=== PATIENT | female | born 1980 | race American Indian/Alaskan Native ===

== ENCOUNTER 2019-08-17 13:22 | Emergency (ER) | payer SELFPAY ==
[2019-08-17 13:26] VITALS: BP 141/80
--- NOTE | 2019-08-17 13:32 | Emergency Department Report ---
Blank Doc - Documentation Documentation: 39-year-old female that presents with urinary symptoms and pelvic pain. This initial assessment/diagnostic orders/clinical plan/treatment(s) is/are subject to change based on patient's health status, clinical progression and re- assessment by fellow clinical providers in the ED. Further treatment and workup at subsequent clinical providers discretion. Patient/guardians urged not to elope from the ED as their condition may be serious if not clinically assessed and managed. Initial orders include: 1- Patient sent to [facility] for further evaluation and treatment 2- UA
[2019-08-17 14:47] LABS: HCG Qualitative,Urine Negative (Negative)
[2019-08-17 14:50] LABS: Bilirubin,Urine NEG (Negative); Blood,Urine NEG (Negative); Color,Urine Colorless (Yellow); Protein,Urine <15 mg/dL mg/dL (Negative); Urobilinogen,Urine < 2.0 mg/dL (<2.0); WBC,Urine < 1.0 /HPF (0.0-6.0)
--- NOTE | 2019-08-17 18:18 | Emergency Department Report ---
HPI - General Chief Complaint: Abdominal Pain Time Seen by Provider: 08/17/19 13:31 - HPI HPI: 39-year-old -[place] female presents to the emergency department with a complaint of some lower abdominal and pelvic cramping pain and dysuria that has been going on for the past 1-2 months. The patient says that she saw a physician 3 weeks ago and was placed on Bactrim and the symptoms resolved but then they came back within the antibiotics finished. Patient says that she has increased urinary frequency. She denies any past history. She denies any fever, nausea or vomiting, vaginal discharge or vaginal bleeding. ED Past Medical Hx - Past Medical History Previous Medical History?: No - Surgical History Past Surgical History?: Yes Additional Surgical History: - Social History Smoking Status: Never Smoker Substance Use Type: None - Medications Home Medications: Home Medications Medication Instructions Recorded Confirmed Last Taken Type Phenazopyridine [Pyridium] 100 mg PO TID #6 tab 08/17/19 Unknown Rx ED Review of Systems ROS: Stated complaint: POSS UTI Other details as noted in HPI Comment: All other systems reviewed and negative Constitutional: denies: chills, fever Gastrointestinal: abdominal pain. denies: nausea, vomiting Genitourinary: dysuria, frequency. denies: discharge Musculoskeletal: denies: back pain Skin: denies: rash, lesions Physical Exam - Physical Exam Vital Signs: Vital Signs 08/17/19 13:25 Temperature 98.4 F Pulse Rate 87 Respiratory 16 Rate Blood Pressure 141/80 O2 Sat by Pulse 96 Oximetry Physical Exam: GENERAL: The patient is well-developed well-nourished. HEENT: Normocephalic. Atraumatic. Patient has moist mucous membranes. EYES: Extraocular motions are intact. NECK: Supple. Trachea is midline. CHEST/LUNGS: Clear to auscultation. There is no respiratory distress noted. HEART/CARDIOVASCULAR: Regular. There is no tachycardia. There is no murmur. ABDOMEN: Abdomen is soft. Unable to reproduce lower abdominal or pelvic pain to palpation. No guarding. Patient has normal bowel sounds. There is no abdominal distention. SKIN:Skin is warm and dry. . NEURO: The patient is awake, alert, and oriented. The patient is cooperative. The patient has no focal neurologic deficits. Normal speech. MUSCULOSKELETAL: There is no tenderness or deformity. There is no evidence of acute injury. ED Course Vital Signs 08/17/19 13:25 Temperature 98.4 F Pulse Rate 87 Respiratory 16 Rate Blood Pressure 141/80 O2 Sat by Pulse 96 Oximetry ED Medical Decision Making - Medical Decision Making This patient presents to the emergency department with complaint of some lower abdominal and/or pelvic discomfort as well as some dysuria. She previously had a UTI and said that her symptoms resolved when she was on antibiotics and then returned as soon as they were completed. Her urinalysis is unremarkable. There is no urinary tract infection, no hematuria, and the patient is not . Her vital signs have been stable throughout her ED course. Patient says that she is in a lot of discomfort. However, when I told her that we should get an ultrasound done to look at the bladder, uterus and ovaries, the patient was not willing to remain in the emergency department any further. Even despite this, I told the patient that I would treat her with some Pyridium for possible bladder spasm and give her referrals for urology. As soon as I went to prepare her discharge instructions and prescriptions, the patient eloped from the emergency department. - Differential Diagnosis UTI, , interstitial cystitis, fibroids Critical Care Time: No Critical care attestation.: If time is entered above; I have spent that time in minutes in the direct care of this critically ill patient, excluding procedure time. ED Disposition Clinical Impression: Dysuria, Pelvic cramping, Abdominal cramping Disposition: DC-01 TO HOME OR SELFCARE Is pt being admited?: No Condition: Stable Instructions: Dysuria (ED), Abdominal Pain (ED) Additional Instructions: Please follow-up with your primary care physician in the next few days. I'm gi ving you a referral for a local urologist, Dr Reyes, to follow up regarding your issues with burning with urination and increased urinary frequency. A urinary tract infection was not found today with your urinalysis. However I'm giving him a prescription for a medication called Pyridium to try and treat possible bladder spasm. This medication has the side effect in which it may turn urine urine or other secretions an orange color. Return to the emergency Department with any worsening of your symptoms or any acute distress. Prescriptions: Phenazopyridine [Pyridium] 100 mg PO TID #6 tab Referrals: PRIMARY CARE, [Primary Care Provider] - 2-3 Days RICHELLE REYES MD [Staff Physician] - 2-3 Days Time of Disposition: 18:18
== END 2019-08-17 18:23 | disposition home or self-care (01) ==
LOC: ED 13:22
DX: R10.30 Lower abdominal pain, unspecified (principal); R10.2 Pelvic and perineal pain; R30.0 Dysuria; Z88.8 Allergy status to other drugs, medicaments and biological substances
CPT/HCPCS: 81001; 81025; 87086

== ENCOUNTER 2019-12-06 07:29 | Emergency (ER) | payer SELFPAY ==
[2019-12-06] MEDS ORDERED: HYDROcodone/ACETAMINOPHEN 10-325MG TAB PO ONE (08:19)
[2019-12-06] MEDS ORDERED: TETANUS,DIPH,PERTUSS(ACELL) VACCINE 0.5 ML SYRINGE IM ONE ×2 (08:19→10:00)
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
[2019-12-06 09:34] VITALS: BP 119/81
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
[2019-12-06 12:20] LABS: Bilirubin,Urine NEG (Negative); Blood,Urine SM (Negative); Color,Urine Amber (Yellow); Mucus,Urine FEW /HPF; Urobilinogen,Urine < 2.0 mg/dL (<2.0)
[2019-12-06 12:21] LABS: HCG Qualitative,Urine Negative (Negative)
[2019-12-06 12:25] LABS: Benzodiazepines Screen,Urine PRESUMPTIVE NEGATIVE; Methadone Screen,Urine PRESUMPTIVE NEGATIVE; Opiate Screen,Urine PRESUMPTIVE NEGATIVE
[2019-12-06 12:49] LABS: Amphetamine Screen,Urine PRESUMPTIVE POSITIVE; Cannabinoid Screen,Urine PRESUMPTIVE POSITIVE; Cocaine Screen,Urine PRESUMPTIVE POSITIVE
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
[2019-12-06] MEDS ORDERED: ACETAMINOPHEN 325 MG TAB ONE (14:04)
[2019-12-06] MEDS ORDERED: ACETAMINOPHEN 325 MG TAB PO ONE (14:05)
== END 2019-12-06 14:07 | disposition home or self-care (01) ==
LOC: EEVIPCON 07:29 → ED 07:29
DX: S16.1XXA Strain of muscle, fascia and tendon at neck level, initial encounter (principal); S30.0XXA Contusion of lower back and pelvis, initial encounter; S06.0X0A Concussion without loss of consciousness, initial encounter; F17.200 Nicotine dependence, unspecified, uncomplicated; F12.10 Cannabis abuse, uncomplicated; Z98.890 Other specified postprocedural states; Z79.899 Other long term (current) drug therapy; Z88.8 Allergy status to other drugs, medicaments and biological substances; Y04.2XXA Assault by strike against or bumped into by another person, initial encounter; Y93.89 Activity, other specified; Y92.89 Other specified places as the place of occurrence of the external cause; Y99.8 Other external cause status
CPT/HCPCS: 70450; 70486; 72040; 72100; 80307; 81001; 81025; 87086; 90471; 90715

== ENCOUNTER 2021-04-23 09:05 | Emergency (ER) | payer SELFPAY ==
[2021-04-23 09:23] VITALS: BP 119/76
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
[2021-04-23 10:22] LABS: Basophils % (Auto) 0.7 % (0.0-1.8); Hematocrit 36.4 % (30.3-42.9); Hemoglobin 12.2 gm/dl (10.1-14.3); Lymphocytes # (Auto) 1.1 K/mm3 (1.2-5.4); Lymphocytes % (Auto) 30.8 % (13.4-35.0); Mean Corpuscular HGB Conc 33 % (30-34); Mean Corpuscular Volume 93 fl (79-97); Monocytes # (Auto) 0.4 K/mm3 (0.0-0.8); Monocytes % (Auto) 11.7 % (0.0-7.3); Platelet Count 172 K/mm3 (140-440); Red Blood Count 3.93 M/mm3 (3.65-5.03); Red Cell Distribution Width 18.6 % (13.2-15.2)
[2021-04-23 11:08] LABS: BUN/Creatinine Ratio 13; Blood Urea Nitrogen 8 mg/dL (7-17); Hemolysis Index 5
== END 2021-04-23 11:50 | disposition left against medical advice (07) ==
LOC: ED 09:05
DX: R45.851 Suicidal ideations (principal); Z53.21 Procedure and treatment not carried out due to patient leaving prior to being seen by health care provider
CPT/HCPCS: 36415; 80048; 80320; 84703; 85025; G0480